=== PATIENT | male | born 1970 ===

== ENCOUNTER 2017-01-24 19:34 | Emergency (ER) | payer SELFPAY ==
[2017-01-24 19:35] VITALS: BMI 24.7
[2017-01-24 19:53] VITALS: BP 114/81; PULSE 64; RESP 20; O2SAT 95
[2017-01-24] MEDS ORDERED: TDAP Vaccine 0.5 mL Syr IM ONE (20:08)
--- NOTE | 2017-01-24 20:09 | ED PDOC ---
Arrival/HPI - General Chief Complaint: Trauma Time Seen by Provider: 01/24/17 20:07 Historian: Patient, Gas Utility Worker (Scribe: Katherine) - History of Present Illness Narrative History of Present Illness (Text): 01/24/17 20:11 A 46 year old male with no significant past medical history presents to the emergency department via EMS for further evaluation after falling and obtaining an abrasion to his right elbow. The patient notes that he did consume ETOH today , but denies any complaint. The patient denies fevers, chills, headache, dizziness, chest pain, shortness of breath, dyspnea on exertion, cough, abdominal pain, nausea, vomiting, diarrhea, back pain, neck pain, urinary/bowel changes, or any other complaint. Time/Duration: Prior to Arrival Symptom Onset: Sudden Symptom Course: Unchanged Activities at Onset: Rest, Light Context: Home Past Medical History - Provider Review Nursing Documentation Reviewed: Yes - Infectious Disease Hx of Infectious Diseases: None - Psychiatric Hx Substance Use: No - Anesthesia Hx Anesthesia: No Family/Social History - Physician Review Nursing Documentation Reviewed: Yes Family/Social History: No Known Family HX Smoking Status: Never Smoked Hx Alcohol Use: Yes Frequency of alcohol use: Socially Hx Substance Use: No Allergies/Home Meds Allergies/Adverse Reactions: Allergies No Known Allergies Allergy (Verified 01/24/17 19:35) Home Medications: Home Meds Medication Instructions Recorded Confirmed No Known Home Med 01/24/17 01/24/17 Review of Systems - Physician Review All systems were reviewed & negative as marked: Yes - Review of Systems Constitutional: absent: Fevers, Night Sweats Respiratory: absent: SOB, Cough Cardiovascular: absent: Chest Pain Gastrointestinal: absent: Abdominal Pain, Stool Changes, Diarrhea, Nausea, Vomiting Genitourinary Male: absent: Urinary Output Changes Musculoskeletal: absent: Back Pain, Neck Pain Neurological: absent: Headache, Dizziness Physical Exam - Physical Exam Narrative Physical Exam (Text): 01/24/17 20:16 Constitutional: No acute distress. Head: Normocephalic. Atraumatic. Eyes: PERRL. ENT: Moist mucous membranes. Neck: Supple. Cardiovascular: Regular rate. Chest: No tenderness. Respiratory: Clear to auscultation bilaterally. GI: Soft. Nontender. Nondistended. Back: No CVA tenderness. Musculoskeletal: No tenderness or swelling of extremities. Abrasion to right elbow. No laceration. No bony tenderness. Full ROM. Skin: No rash. Neurologic: Alert, no focal deficit. Oriented x3. Steady gait. Vital Signs Reviewed: Yes Vital Signs Temp Pulse Resp BP Pulse Ox 01/24/17 20:27 98.7 F 01/24/17 19:44 64 20 114/81 95 Temperature: Afebrile Blood Pressure: Normal Pulse: Regular Respiratory Rate: Normal Appearance: Positive for: Well-Appearing, Non-Toxic, Comfortable Pain Distress: None Mental Status: Positive for: Alert and Oriented X 3 Medical Decision Making ED Course and Treatment: 01/24/17 20:17 Impression: A 46 year old male presents for further evaluation after obtaining an abrasion on the right elbow during a fall. Patient with steady gait, no complaints, superficial abrasion on elbow. History of alcohol consumption today but patient awake, alert, answers questions appropraitely and oriented x 3. Will discharge home, return for any reason. 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 I have reviewed the chart and agree that the record accurately reflects my personal performance of the history, physical exam, medical decision making, and the department course for this patient. I have also personally directed, reviewed, and agree with the discharge instructions and disposition. Disposition/Present on Arrival - Present on Arrival Any Indicators Present on Arrival: No History of DVT/PE: No History of Uncontrolled Diabetes: No Urinary Catheter: No History of Decub. Ulcer: No History Surgical Site Infection Following: None - Disposition Have Diagnosis and Disposition been Completed?: Yes Diagnosis: Abrasion Disposition: HOME/ ROUTINE Disposition Time: 20:10 Patient Plan: Discharge Condition: STABLE Discharge Instructions (ExitCare): Abrasion (ED) Referrals: [facility] [place] - Follow up with primary Forms: Peela (Ukrainian)
[2017-01-24 20:28] VITALS: TEMP 98.7
== END 2017-01-24 20:36 | disposition home or self-care (01) ==
LOC: ED 19:34
DX: S50.311A Abrasion of right elbow, initial encounter (principal); W19.XXXA Unspecified fall, initial encounter; Y93.9 Activity, unspecified; Y92.830 Public park as the place of occurrence of the external cause; Z23 Encounter for immunization

== ENCOUNTER 2017-03-30 19:31 | Emergency (ER) | payer SELFPAY ==
--- NOTE | 2017-03-30 19:32 | ED PDOC ---
Arrival/HPI - General Time Seen by Provider: 03/30/17 19:32 Historian: Patient - History of Present Illness Narrative History of Present Illness (Text): 03/30/17 19:32 47 year old male, no significant pmh, nkda, last tetanus doesn't remember, complaining of lt. hand 1st digit thumb laceration x 1 week and has pain on the laceration site with painful to flex on the injured thumb. Pt. stated that the laceration site feel mild decrease in sensation, no palpitation, no rash, no night sweat, no dizziness, no palpitation, no other medical or psychological complaints. Past Medical History - Provider Review Nursing Documentation Reviewed: Yes - Infectious Disease Hx of Infectious Diseases: None - Psychiatric Hx Substance Use: No - Anesthesia Hx Anesthesia: No Family/Social History - Physician Review Nursing Documentation Reviewed: Yes Family/Social History: Unknown Family HX Smoking Status: Never Smoked Hx Alcohol Use: Yes Hx Substance Use: No Allergies/Home Meds Allergies/Adverse Reactions: Allergies No Known Allergies Allergy (Verified 03/30/17 19:42) Review of Systems - Review of Systems Constitutional: absent: Fatigue, Fevers Eyes: absent: Vision Changes ENT: absent: Hearing Changes Respiratory: absent: SOB, Cough Cardiovascular: absent: Chest Pain Gastrointestinal: absent: Abdominal Pain, Nausea, Vomiting Musculoskeletal: absent: Arthralgias, Back Pain Skin: Laceration. absent: Rash, Pruritis Neurological: absent: Headache, Dizziness Psychiatric: absent: Anxiety, Depression, Suicidal Ideation Physical Exam Vital Signs Reviewed: Yes Vital Signs Temp Pulse Resp BP Pulse Ox 03/30/17 21:08 72 18 146/78 98 03/30/17 19:44 97.8 F 76 16 152/95 H 96 Temperature: Afebrile Blood Pressure: Hypertensive Pulse: Regular Respiratory Rate: Normal Appearance: Positive for: Well-Appearing, Non-Toxic, Comfortable Pain Distress: Mild Mental Status: Positive for: Alert and Oriented X 3 - Systems Exam Head: Present: Atraumatic, Normocephalic Pupils: Present: PERRL Extroacular Muscles: Present: EOMI Conjunctiva: Present: Normal Mouth: Present: Moist Mucous Membranes Neck: Present: Normal Range of Motion Respiratory/Chest: Present: Clear to Auscultation, Good Air Exchange. No: Respiratory Distress, Accessory Muscle Use Cardiovascular: Present: Regular Rate and Rhythm, Normal S1, S2. No: Murmurs Abdomen: Present: Normal Bowel Sounds. No: Tenderness, Distention, Peritoneal Signs Back: Present: Normal Inspection Upper Extremity: Present: Normal Inspection, Other (Lt. hand 1st digit thumb on the 1st PIPJ dorsally visible healing wound laceration with mild swelling approx. 1.5cm laceration, able to extend the 1st digit thumb but painful to flex the 1st digit thumb, no passive flexion and no sausage shaped thumb, no signs of tenosynovitis, no tenderness on the ventral flexor/dorsum tendons, + radial pulse, sensation intact, motor 5/5, capillary refill< 2 seconds, neurovascular intact. ). No: Cyanosis, Edema Lower Extremity: Present: Normal Inspection. No: Edema Neurological: Present: GCS=15, CN II-XII Intact, Speech Normal Skin: Present: Warm, Dry, Normal Color. No: Rashes Psychiatric: Present: Alert, Oriented x 3, Normal Insight, Normal Concentration Medical Decision Making ED Course and Treatment: 03/30/17 20:20 -keflex/motrin/tetanus -xray 03/30/17 20:54 -xray show no displaced fracture or dislocation, -I explained that there is a chance of tendon/ligament/nerve laceration which he will need hand surgeon follow up. -Discharge home with keflex, motrin, bacitracin ointment, finger splint, follow up with your own pmd and hand specialist within 2 days, return to the ER for any new or worsening signs or symptoms. - RAD Interpretation Radiology Orders: 03/30/17 20:00 HAND LEFT THUMB [RAD] Stat no acute findings. Hydramatic Specialist: Radiologist - Medication Orders Current Medication Orders: Discontinued Medications Cephalexin Monohydrate (Keflex) 500 mg PO STAT STA PRN Reason: Protocol Stop: 03/30/17 20:13 Last Admin: 03/30/17 20:20 Dose: 500 mg Ibuprofen (Motrin Tab) 600 mg PO STAT STA Stop: 03/30/17 20:01 Last Admin: 03/30/17 20:11 Dose: 600 mg MAR Pain/Vitals Document 03/30/17 20:11 GMD (Rec: 03/30/17 20:11 GMD [facility] [id number][place] Pain Reassessment Is This A Pain ReAssessment? No Sleep Is patient sleeping during reassessment? 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 Disposition/Present on Arrival - Present on Arrival Any Indicators Present on Arrival: No History of DVT/PE: No History of Uncontrolled Diabetes: No Urinary Catheter: No History of Decub. Ulcer: No History Surgical Site Infection Following: None - Disposition Have Diagnosis and Disposition been Completed?: Yes Diagnosis: Finger injury, Finger pain, Visit for wound check Disposition: HOME/ ROUTINE Disposition Time: 20:55 Patient Plan: Discharge Condition: GOOD Additional Instructions: -Discharge home with keflex, motrin, bacitracin ointment, finger splint, follow up with your own pmd and hand specialist within 2 days, return to the ER for any new or worsening signs or symptoms. Prescriptions: Bacitracin Ointment [Bacitracin] 1 appful TOP BID #15 g Cephalexin [Keflex] 500 mg PO QID #40 capsule Ibuprofen [Motrin] 600 mg PO QID PRN #30 tab PRN Reason: Other Referrals: [employer] [facility], [Non-Staff] - Follow up with primary Nj Parkinson III, MD [Medical Doctor] - Follow up with primary Chandana Vazquez MD [Staff Provider] - Follow up with primary [facility] [place] [Outside] - Follow up with primary Forms: WORK NOTE
[2017-03-30 19:43] VITALS: BMI 29.9
[2017-03-30 19:45] VITALS: TEMP 97.8
[2017-03-30] MEDS ORDERED: TDAP Vaccine 0.5 mL Syr IM ONE (20:00)
[2017-03-30 21:09] VITALS: BP 146/78; PULSE 72; RESP 18; O2SAT 98
--- NOTE | 2017-03-31 08:19 | RAD ---
PROCEDURE: Left Hand and thumb Radiographs. HISTORY: Lt. hand thumb pain x 1-2 weeks COMPARISON: None. FINDINGS: BONES: Normal. No fracture. JOINTS: Normal. No osteoarthritic changes. SOFT TISSUES: Normal. OTHER FINDINGS: None. IMPRESSION: No acute findings
== END 2017-03-30 21:12 | disposition home or self-care (01) ==
LOC: ED 19:31
DX: Z51.89 Encounter for other specified aftercare (principal); M79.642 Pain in left hand; Z23 Encounter for immunization; S61.012A Laceration without foreign body of left thumb without damage to nail, initial encounter; X58.XXXA Exposure to other specified factors, initial encounter